=== PATIENT | male | born 1955 | race Caucasian/White ===

== ENCOUNTER → 2023-06-13 13:50 | Outpatient (REF) | payer OTHER, SELFPAY | LOC: HWRCS 13:50 | PROVIDERS: ATTENDING PHYSICIAN Internal Medicine Geriatric Medicine | DX: E78.2 Mixed hyperlipidemia (principal); K74.60 Unspecified cirrhosis of liver; N18.2 Chronic kidney disease, stage 2 (mild); E03.9 Hypothyroidism, unspecified; K21.9 Gastro-esophageal reflux disease without esophagitis; I50.20 Unspecified systolic (congestive) heart failure; Z13.89 Encounter for screening for other disorder | CPT/HCPCS: 93306 ==